=== PATIENT | male | born 1955 | race Caucasian/White ===

== ENCOUNTER 2018-04-03 13:31 | Emergency (ER) | payer MEDICAID ==
[~2018-04-03] VITALS: Ht 177.8 cm; Wt 75.0 kg
[~2018-04-03 13:31] MED LIST: LEVO100T8; PHEN100C; PHEN100C PO; oxybutin
[2018-04-03 14:32] LABS: BASOPHILS # (AUTO) 0.09 x10^3/uL (0-0.1); BASOPHILS % (AUTO) 1 % (0-1); EOSINOPHILS # (AUTO) 0.11 x10^3/uL (0-0.4); EOSINOPHILS % (AUTO) 1 % (1-7); LYMPHOCYTES # (AUTO) 2.18 x10^3/uL (1-3.4); LYMPHOCYTES % (AUTO) 27 % (22-44); MD NO; MEAN CORPUSCULAR HEMOGLOBIN 30.6 pg (27.5-34.5); MEAN CORPUSCULAR HGB CONC 33.7 g/dL (33.2-36.2); MEAN CORPUSCULAR VOLUME 90.6 fL (81-97); MEAN PLATELET VOLUME 9.6 fL (7.4-10.4); MONOCYTES # (AUTO) 1.03 x10^3/uL (0.2-0.8); MONOCYTES % (AUTO) 13 % (2-9); NEUTROPHILS # (AUTO) 4.65 x10^3/uL (1.8-6.8); NEUTROPHILS % (AUTO) 58 % (42-75); PLATELET COUNT 279 x10^3/uL (130-400); RED BLOOD COUNT 4.85 x10^6/uL (4.38-5.82); RED CELL DISTRIBUTION WIDTH 13.7 % (9.4-14.8)
[2018-04-03 14:44] LABS: ALANINE AMINOTRANSFERASE 19 U/L (12-78); ALBUMIN 3.7 g/dL (3.4-5.0); ANION GAP 7 mmol/L (5-15); CALCIUM 8.7 mg/dL (8.5-10.1); CHLORIDE 108 mmol/L (98-107)
[2018-04-03 14:47] LABS: ALKALINE PHOSPHATASE 122 U/L (45-117); BILIRUBIN,TOTAL 0.5 mg/dL (0.2-1.0); CREATININE 0.95 mg/dL (0.7-1.3); TOTAL PROTEIN 7.6 g/dL (6.4-8.2)
[2018-04-03] MEDS ORDERED: ACETAMINOPHEN 500 MG TABLET PO ONE (15:00)
[2018-04-03] MEDS ORDERED: ACETAMINOPHEN 500 MG TABLET ONE (15:10)
[2018-04-03 16:05] VITALS: BP 140/72
== END 2018-04-03 17:03 | disposition home or self-care (01) ==
LOC: ED 16:21
DX: G44.319 Acute post-traumatic headache, not intractable (principal); G40.909 Epilepsy, unspecified, not intractable, without status epilepticus
CPT/HCPCS: 36415; 70450; 80053; 85025; 93005; 99285

== ENCOUNTER 2018-08-21 14:57 | Emergency (ER) | payer MEDICAID ==
[~2018-08-21] VITALS: Ht 177.8 cm; Wt 73.0 kg
[2018-08-21] MEDS ORDERED: PROMETHAZINE 25 MG/ML, 1ML ONE (15:09)
--- NOTE | 2018-08-21 15:16 | NUR ---
63 Y/O MALE BIB AMBULANCE WITH C/O POSSIBLE SZ. PER REPORT FROM EMS PT WAS FOUND DOWN ON J[place] AND [place]. A BYSTANDER CALLED EMS. PIV ESTABLISHED VEST TAILOR. 4MG ZOFRAN ADMINISTERED. NO C/O D, SOB, CP. PT STATES "I MUST HAVE FELL. I DO HAVE A HX OF SEIZURES AND I HAVEN'T BEEN TAKING MY MEDICATIONS.I'VE BEEN WORKING IN THE AREA THAT THEY PICKED ME UP AT. I JUST DON'T REMEMBER FALLING. 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 SEIZURE PRECAUTIONS IN PLACE. Addendum: 08/21/18 at 1525 by MELINDA PER EMS REPORT PT APPEARED INCONTINENT UPON ARRIVAL
--- NOTE | 2018-08-21 15:24 | NUR ---
TRIED CALLING PT , THERESE, WITH THE NUMBER IN THE COMPUTER. NUMBER HAS BEEN DISCONNECTED.,
[2018-08-21] MEDS ORDERED: PROMETHAZINE 25 MG/ML, 1ML IM ONE (15:30)
[2018-08-21 15:34] LABS: BASOPHILS # (AUTO) 0.06 x10^3/uL (0-0.1); BASOPHILS % (AUTO) 1 % (0-1); EOSINOPHILS # (AUTO) 0.33 x10^3/uL (0-0.4); EOSINOPHILS % (AUTO) 3 % (1-7); LYMPHOCYTES # (AUTO) 3.32 x10^3/uL (1-3.4); LYMPHOCYTES % (AUTO) 32 % (22-44); MD NO; MEAN CORPUSCULAR HGB CONC 33.7 g/dL (33.2-36.2); MEAN CORPUSCULAR VOLUME 91.9 fL (81-97); MEAN PLATELET VOLUME 9.7 fL (7.4-10.4); MONOCYTES # (AUTO) 1.16 x10^3/uL (0.2-0.8); MONOCYTES % (AUTO) 11 % (2-9); NEUTROPHILS # (AUTO) 5.38 x10^3/uL (1.8-6.8); NEUTROPHILS % (AUTO) 53 % (42-75); PLATELET COUNT 287 x10^3/uL (130-400); RED BLOOD COUNT 4.97 x10^6/uL (4.38-5.82); RED CELL DISTRIBUTION WIDTH 14.3 % (9.4-14.8)
[2018-08-21 15:36] LABS: ALANINE AMINOTRANSFERASE 27 U/L (12-78); ALBUMIN 3.7 g/dL (3.4-5.0); ANION GAP 7 mmol/L (5-15); CALCIUM 8.4 mg/dL (8.5-10.1); CHLORIDE 107 mmol/L (98-107); CREATININE 0.89 mg/dL (0.7-1.3)
[2018-08-21 15:39] LABS: ALKALINE PHOSPHATASE 114 U/L (45-117); BILIRUBIN,TOTAL 0.4 mg/dL (0.2-1.0); TOTAL PROTEIN 7.3 g/dL (6.4-8.2)
--- NOTE | 2018-08-21 16:03 | NUR ---
PT BEING TAKEN TO IMAGING.
--- NOTE | 2018-08-21 16:22 | NUR ---
PT BACK FROM IMAGING. PT STATES "I HAVEN'T THROWN UP SINCE THE SHOT. I STILL DON'T KNOW MY 'S PHONE NUMBER RIGHT NOW." NO ACUTE DISTRESS NOTED. NO NEEDS AT THIS TIME.
--- NOTE | 2018-08-21 17:25 | NUR ---
pt sitting up in gurney. PT ABLE TO USE URINAL. PT SPEAKING FULL SENTENCES ABOUT PAST SEIZURE ACTIVITY. NO ACUTE DISTRESS NOTED.
--- NOTE | 2018-08-21 17:33 | NUR ---
PT STATES "THINGS ARE COMING BACK NOW. I'M REMEMBERING THINGS."
[2018-08-21 17:54] LABS: AMPHETAMINE SCREEN, URINE Positive (Negative); BARBITURATE SCREEN, URINE Negative (Negative); BENZODIAZEPINE SCREEN, URINE Negative (Negative); CANNABINOID SCREEN, URINE Negative (Negative); COCAINE SCREEN, URINE Negative (Negative); METHADONE SCREEN, URINE Negative (Negative); OPIATE SCREEN, URINE Negative (Negative)
[2018-08-21] MEDS ORDERED: PHENYTOIN SODIUM 1,000 MG in SODIUM CHLORIDE 0.9% 100 ML IV ONE (18:00)
[2018-08-21] MEDS ORDERED: FILTER 0.22 MICRON FOR PHENYTOIN IV PRN (18:30)
--- NOTE | 2018-08-21 18:57 | NUR ---
JUST RECEIVED DILANTIN FROM PHARMACY. MEDICATION ADMINISTERED PER EMAR. PT RESTING ON GURNEY. NO ACUTE DISTRESS NOTED. PT EATING CANDY BAR. NO NEEDS REQUESTED AT THIS TIME.
--- NOTE | 2018-08-21 19:05 | NUR ---
Report given from ji estevez
--- NOTE | 2018-08-21 20:01 | NUR ---
CALLED. 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
--- NOTE | 2018-08-21 20:07 | NUR ---
PT REPORTS HE FEELS DIZZY. DR LINARES AWARE. PT TO BE MONITORED. NOT READY FOR D/C
--- NOTE | 2018-08-21 20:19 | NUR ---
DR DRAPER HAS SEEN PATIENT AND UPDATED PATIENT AND . PT READY FOR D/C
[2018-08-21 20:20] VITALS: BP 104/83
--- NOTE | 2018-08-21 20:32 | NUR ---
DR LINARES HAD REEVALUATED PATIENT. PATIENT READY FOR D/C. PT IS A&O X4. REPORTS THIS IS PATIENT'S BASELINE. PT IS ABLE TO SAFELY AMBULATE AROUND ROOM. PT AND EDUCATED ON WARNING SIGNS TO RETURN. PT AND VERBALIZE UNDERSTANDING. PT DISCHARGE
--- NOTE | 2018-08-21 20:46 | NUR ---
PT STATES, "I ONLY LIVE A FEW BLOCKS AWAY. I WANT TO LEAVE." PT DISCHRAGED
== END 2018-08-21 20:36 | disposition home or self-care (01) ==
LOC: ED 18:40
DX: S06.0X9A Concussion with loss of consciousness of unspecified duration, initial encounter (principal); X58.XXXA Exposure to other specified factors, initial encounter; Y93.89 Activity, other specified; Y92.89 Other specified places as the place of occurrence of the external cause; Y99.8 Other external cause status
CPT/HCPCS: 36415; 70450; 80053; 80185; 80307; 85025; 96365; 96372; 99284; J1165; J2550

== ENCOUNTER 2018-12-01 18:27 | Inpatient (IN) | payer MEDICAID ==
[~2018-12-01] VITALS: Ht 175.3 cm; Wt 69.0 kg
--- NOTE | 2018-12-01 18:40 | NUR ---
FIELD PLACEMENT DIRECTOR: PT TO ROOM, AMB, GAIT STEADY
--- NOTE | 2018-12-01 18:47 | NUR ---
PT HAVING VISUAL AND AUDITORY HALLUCINATIONS/DILUSIONS X 1 WEEK, HX SEIZURE DISORDER, NO MEDICATION CHANGES. PER PT WANTED TO HURT PEOPLE HE THINKS SHE IS CHEATING WITH OR BREAKING INTO THE HOUSE. PLACED ON MONITOR, AT BEDSIDE. CALL LIGHT WITHIN REACH.
[2018-12-01 18:57] LABS: BASOPHILS # (AUTO) 0.03 x10^3/uL (0-0.1); BASOPHILS % (AUTO) 0 % (0-1); EOSINOPHILS # (AUTO) 0.24 x10^3/uL (0-0.4); EOSINOPHILS % (AUTO) 3 % (1-7); LYMPHOCYTES # (AUTO) 2.03 x10^3/uL (1-3.4); LYMPHOCYTES % (AUTO) 26 % (22-44); MD NO; MEAN CORPUSCULAR HEMOGLOBIN 31.4 pg (27.5-34.5); MEAN CORPUSCULAR HGB CONC 33.7 g/dL (33.2-36.2); MEAN CORPUSCULAR VOLUME 93.2 fL (81-97); MEAN PLATELET VOLUME 10.1 fL (7.4-10.4); MONOCYTES # (AUTO) 0.94 x10^3/uL (0.2-0.8); MONOCYTES % (AUTO) 12 % (2-9); NEUTROPHILS # (AUTO) 4.48 x10^3/uL (1.8-6.8); NEUTROPHILS % (AUTO) 58 % (42-75); PLATELET COUNT 224 x10^3/uL (130-400); RED BLOOD COUNT 4.63 x10^6/uL (4.38-5.82); RED CELL DISTRIBUTION WIDTH 14.7 % (9.4-14.8)
[2018-12-01 19:05] LABS: ALANINE AMINOTRANSFERASE 26 U/L (12-78); ALBUMIN 3.6 g/dL (3.4-5.0); ANION GAP 4 mmol/L (5-15); CALCIUM 8.2 mg/dL (8.5-10.1); CHLORIDE 106 mmol/L (98-107); CREATININE 0.79 mg/dL (0.7-1.3)
[2018-12-01 19:06] LABS: SALICYLATE LEVEL < 1.7 mg/dL (2.8-20.0)
[2018-12-01 19:07] LABS: ALKALINE PHOSPHATASE 142 U/L (45-117); BILIRUBIN,TOTAL 0.2 mg/dL (0.2-1.0); TOTAL PROTEIN 6.7 g/dL (6.4-8.2)
[2018-12-01 19:08] LABS: ACETAMINOPHEN < 2 mcg/mL (10-30)
--- NOTE | 2018-12-01 19:15 | NUR ---
PT REPORT FROM SISI LAYNE. THIS RN TO ASSUME CARE OF PT. TB TRANSFERRED TO RM 2.
--- NOTE | 2018-12-01 19:21 | NUR ---
PT MOVED TO ROOM [address] IN [address]. AT BEDSIDE. EKG ACCOMPLISHED AT THIS TIME. PT AWARE OF NEED FOR UA.
[2018-12-01 19:48] LABS: FREE T4 (FREE THYROXINE) 0.61 ng/dL (0.76-1.46)
--- NOTE | 2018-12-01 20:56 | NUR ---
PT SLEEPING COMFORTABLY ON GURNEY. RR EVEN AND UNLABORED. AT BEDSIDE. AWAITING SOC.
[2018-12-01 21:00] LABS: AMPHETAMINE SCREEN, URINE Negative (Negative); BARBITURATE SCREEN, URINE Negative (Negative); BENZODIAZEPINE SCREEN, URINE Negative (Negative); CANNABINOID SCREEN, URINE Negative (Negative); COCAINE SCREEN, URINE Negative (Negative); METHADONE SCREEN, URINE Negative (Negative); OPIATE SCREEN, URINE Negative (Negative)
--- NOTE | 2018-12-01 22:41 | NUR ---
PT , THERESE, NUMBER: [phone] TB CALLED FOR POC.
--- NOTE | 2018-12-01 22:42 | NUR ---
PT SLEEPING COMFORTABLY ON GURNEY. RR EVEN AND UNLABORED. AWAITING SOC.
--- NOTE | 2018-12-02 00:10 | NUR ---
PT SLEEPING COMFORTABLY ON GURNEY. RR EVEN AND UNLABORED. AWAITING SOC.
--- NOTE | 2018-12-02 01:17 | NUR ---
PT REPORT TO HERNAN LAYNE.
--- NOTE | 2018-12-02 01:54 | NUR ---
PT AWOKEN FOR VITALS. VSS. PT DENIES CURRENT NEEDS. PT GIVEN WARM BLANKET PER REQUEST.
--- NOTE | 2018-12-02 01:57 | NUR ---
PT UP TO RESTROOM AT THIS TIME. PT AMBULATES WITH STEADY GAIT AND BACK INTO BED.
--- NOTE | 2018-12-02 02:05 | NUR ---
CALLED TELEPSYCH ABOUT PENDING CONSULT. THEY STATE HE IS NUMBER 4 IN LINE AT THIS TIME.
--- NOTE | 2018-12-02 04:10 | NUR ---
TELE PSYCH CALLS AND NOTES THAT SOC WILL BE ON [place] WITH PT IN APPROX 20 MINUTES
--- NOTE | 2018-12-02 07:32 | NUR ---
SBAR REPORT FROM HERNAN LAYNE. PT RESTING ON GURNEY IN NAD. PT TO BE ADMIT TO MED FOR FURTHER EVAL. NOT ON LEGAL HOLD. POC DISCUSSED WITH PT AND PT AGREES. PT IS CALM AND COOPERATIVE. DENIES ANY HALLUCINATIONS. DENIES ANY SI OR HI AT THIS TIME.
[2018-12-02 07:45] LABS: FOLATE LEVEL 4.1 ng/mL (3.1-17.5)
--- NOTE | 2018-12-02 08:31 | NUR ---
PT RESTING ON [employer]. NADN. [employer]. PROVIDED W/ BREAKFAST TRAY.
--- NOTE | 2018-12-02 09:46 | NUR ---
PT AMBULATORY TO BATHROOM WITH STEADY GAT. NADN. PT TRANSFERRED TO HOSPITAL BED FOR COMFORT.
[2018-12-02] MEDS ORDERED: QUETIAPINE 25MG TABLET PO SCH (10:30)
[2018-12-02] MEDS ORDERED: POLYETHYLENE GLYCOL 17 GM PACKET PO PRN (10:30)
[2018-12-02] MEDS ORDERED: BISACODYL 10 MG SUPP PR PRN (10:30)
[2018-12-02] MEDS ORDERED: ONDANSETRON ODT 4 MG PO PRN (10:30)
[2018-12-02] MEDS ORDERED: ACETAMINOPHEN 325 MG TABLET PO PRN (10:30)
[2018-12-02] MEDS ORDERED: ONDANSETRON 2MG/ML, 2ML IVPush PRN (10:30)
[2018-12-02] MEDS ORDERED: DOCUSATE 100 MG CAPSULE PO PRN (10:30)
[2018-12-02] MEDS ORDERED: hydrALAzine 20 MG/ML, 1ML IVPush PRN (10:30)
[2018-12-02] MEDS ORDERED: PROMETHAZINE 25 MG/ML, 1ML IM PRN (10:30)
[2018-12-02] MEDS ORDERED: PHENYTOIN 100 MG CAPSULE PO SCH ×2 (11:00→21:00)
[2018-12-02] MEDS ORDERED: GADOBUTROL 7.5 MMOL/7.5 ML PFS ONE (11:13)
--- NOTE | 2018-12-02 11:54 | NUR ---
REPORT TO ROVERTO ESTES, OVER PHONE.
[2018-12-02 12:16] VITALS: BP 106/68
[2018-12-02] MEDS: LEVOTHYROXINE 50 MCG TABLET PO SCH (12:49)
[2018-12-02] MEDS: SODIUM CHLORIDE 0.9% 1,000 ML IV SCH ×2 (12:50→21:47)
[2018-12-02 18:33] LABS: MICROSCOPIC NOT IND
[2018-12-02 18:38] LABS: CULTURE INDICATED? NO
[2018-12-02 19:58] VITALS: BP 123/76
[2018-12-03 02:58] VITALS: BP 119/78
[2018-12-03 05:18] LABS: BASOPHILS # (AUTO) 0.03 x10^3/uL (0-0.1); BASOPHILS % (AUTO) 1 % (0-1); EOSINOPHILS # (AUTO) 0.33 x10^3/uL (0-0.4); EOSINOPHILS % (AUTO) 5 % (1-7); LYMPHOCYTES # (AUTO) 2.42 x10^3/uL (1-3.4); LYMPHOCYTES % (AUTO) 37 % (22-44); MD NO; MEAN CORPUSCULAR HEMOGLOBIN 30.8 pg (27.5-34.5); MEAN CORPUSCULAR HGB CONC 33.1 g/dL (33.2-36.2); MEAN CORPUSCULAR VOLUME 93.1 fL (81-97); MEAN PLATELET VOLUME 10.2 fL (7.4-10.4); MONOCYTES # (AUTO) 0.71 x10^3/uL (0.2-0.8); MONOCYTES % (AUTO) 11 % (2-9); NEUTROPHILS # (AUTO) 3.12 x10^3/uL (1.8-6.8); NEUTROPHILS % (AUTO) 47 % (42-75); PLATELET COUNT 191 x10^3/uL (130-400); RED CELL DISTRIBUTION WIDTH 14.8 % (9.4-14.8)
[2018-12-03 05:32] LABS: ALBUMIN 3.1 g/dL (3.4-5.0); ANION GAP 7 mmol/L (5-15); CALCIUM 7.6 mg/dL (8.5-10.1); CHLORIDE 108 mmol/L (98-107)
[2018-12-03 05:37] LABS: ALANINE AMINOTRANSFERASE 21 U/L (12-78); ALKALINE PHOSPHATASE 120 U/L (45-117); BILIRUBIN,TOTAL 0.2 mg/dL (0.2-1.0); CREATININE 0.64 mg/dL (0.7-1.3)
[2018-12-03] MEDS: LEVOTHYROXINE 50 MCG TABLET PO SCH (06:16)
== END 2018-12-03 06:00 | disposition left against medical advice (07) | DRG 885 ==
LOC: ED 22:49 → EDIP 12-02 06:28 → 4NOR 12-02 12:06
PROVIDERS: ADMIT Internal Medicine; ATTEND Internal Medicine
DX: F23 Brief psychotic disorder (principal); E03.9 Hypothyroidism, unspecified; E78.5 Hyperlipidemia, unspecified; F15.90 Other stimulant use, unspecified, uncomplicated; F41.9 Anxiety disorder, unspecified; Z53.21 Procedure and treatment not carried out due to patient leaving prior to being seen by health care provider; G40.909 Epilepsy, unspecified, not intractable, without status epilepticus; Z79.899 Other long term (current) drug therapy
CPT/HCPCS: 36415; 70553; 80053; 80185; 80307; 80329; 81003; 82140; 82607; 82746; 83735; 84100; 84425; 84439; 84443; 85025; 85651; 86140; 86592; 87040; 87806; 93005; 95819; A9585; G0378; G0475; G0480; J7030

== ENCOUNTER 2020-05-02 16:55 | Emergency (ER) | payer MEDICAID ==
[~2020-05-02] VITALS: Ht 177.8 cm; Wt 80.0 kg
[2020-05-02 17:00] VITALS: BP 124/87
--- NOTE | 2020-05-02 20:14 | NUR ---
PT CALLED FOR VITALS, NOT IN LOBBY
== END 2020-05-02 20:22 | disposition left against medical advice (07) ==
LOC: ED 20:16
DX: H92.02 Otalgia, left ear (principal); Z53.21 Procedure and treatment not carried out due to patient leaving prior to being seen by health care provider

== ENCOUNTER 2020-05-15 14:20 | Emergency (ER) | payer MEDICAID ==
[~2020-05-15] VITALS: Ht 177.8 cm; Wt 79.5 kg
[2020-05-15 14:23] VITALS: BP 139/89
--- NOTE | 2020-05-15 15:23 | NUR ---
PT WITH FALL 2 MONTHS AGO, LAST COUPLE DAYS HAS BEEN HAVING INCREASED PAIN IN R HIP AND "ALL OVER MY BODY, THINK ITS ARTHRITIS"
[2020-05-15 15:36] LABS: BASOPHILS % (AUTO) 1 % (0-1); EOSINOPHILS % (AUTO) 1 % (1-7); LYMPHOCYTES % (AUTO) 20 % (22-44); MEAN CORPUSCULAR HEMOGLOBIN 30.2 pg (27.5-34.5); MEAN CORPUSCULAR HGB CONC 33.6 g/dL (33.2-36.2); MEAN PLATELET VOLUME 8.4 fL (7.4-10.4); MONOCYTES % (AUTO) 18 % (2-9); NEUTROPHILS % (AUTO) 61 % (42-75); PLATELET COUNT 399 x10^3/uL (130-400); RED BLOOD COUNT 5.06 x10^6/uL (4.38-5.82); RED CELL DISTRIBUTION WIDTH 13.9 % (9.4-14.8)
[2020-05-15 15:39] LABS: ALBUMIN 3.3 g/dL (3.4-5.0); ANION GAP 6 mmol/L (5-15); CALCIUM 9.3 mg/dL (8.5-10.1); CHLORIDE 101 mmol/L (98-107)
[2020-05-15 15:42] LABS: ALANINE AMINOTRANSFERASE 22 U/L (12-78); ALKALINE PHOSPHATASE 210 U/L (45-117); BILIRUBIN,TOTAL 0.5 mg/dL (0.2-1.0); CREATINE KINASE, TOTAL 57 U/L (39-308); CREATININE 0.86 mg/dL (0.7-1.3); TOTAL PROTEIN 8.4 g/dL (6.4-8.2)
[2020-05-15 15:47] LABS: MD NO
[2020-05-15] MEDS ORDERED: IBUPROFEN 600 MG TABLET PO ONE (16:00)
[2020-05-15] MEDS ORDERED: IBUPROFEN 600 MG TABLET ONE (16:17)
[2020-05-15 17:05] LABS: HCT (SEDRATE) 45.5 % (39.2-51.8)
== END 2020-05-15 18:15 | disposition home or self-care (01) ==
LOC: ED 15:44
DX: M13.0 Polyarthritis, unspecified (principal); M79.10 Myalgia, unspecified site; G40.909 Epilepsy, unspecified, not intractable, without status epilepticus; E03.9 Hypothyroidism, unspecified
CPT/HCPCS: 36415; 80053; 82550; 85025; 85651; 99283; J7512